=== PATIENT | female | born 2000 | race Caucasian/White ===

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

== ENCOUNTER 2020-01-17 20:11 | Emergency (ER) | payer OTHER ==
[2020-01-17 20:17] VITALS: RESP 18
[2020-01-17] MEDS ORDERED: IBUPROFEN 600 MG TAB PO STA (21:03)
[2020-01-17] MEDS ORDERED: PHENAZOPYRIDINE 200 MG TAB PO STA (21:03)
--- NOTE | 2020-01-17 21:04 | ED ---
Female Urogenital HPI - General Chief complaint: Urogenital Stated complaint: Vaginal pain Time Seen by Provider: 01/17/20 20:26 Source: patient Mode of arrival: ambulatory Limitations: no limitations - History of Present Illness Initial comments: 19-year-old female patient presents to the emergency department today for evaluation of urinary frequency, urgency, and dysuria. Patient states that she has been having discomfort to the suprapubic region for the last 4 or 5 days. States she started having burning with urination today. States that she also started her period today. Prior to onset of her menses she denies any abnormal vaginal discharge or odor. She denies fever, chills, nausea, or vomiting. Denies any flank pain. Denies chance of . Denies concern for sexually transmitted infections. Patient denies any recent rash, cough, shortness of breath, chest pain, diarrhea, constipation, back pain, numbness, tingling, dizziness, weakness, headache, visual changes, or any other complaints. Last Menstrual Period: 01/16/20 - Related Data Home Medications Medication Instructions Recorded Confirmed Dm/Acetaminophen/Doxylamine [Vicks 1 cap PO HS PRN 12/10/18 12/10/18 Nyquil Liquicaps] Ibuprofen [Motrin Ib] 400 mg PO Q6H PRN 12/10/18 12/10/18 Previous Rx's Medication Instructions Recorded Nitrofurantoin Monohyd/M-Cryst 100 mg PO Q12HR #14 cap 01/17/20 [Macrobid] Phenazopyridine [Pyridium] 200 mg PO TID #18 tablet 01/17/20 Allergies Allergy/AdvReac Type Severity Reaction Status Date / Time No Known Allergies Allergy Verified 07/13/19 09:31 Review of Systems ROS Statement: Those systems with pertinent positive or pertinent negative responses have been documented in the HPI. ROS Other: All systems not noted in ROS Statement are negative. Past Medical History Past Medical History: Asthma Additional Past Medical History / Comment(s): previously suicidal 2 yrs ago with cutting self, exercise induced asthma History of Any Multi-Drug Resistant Organisms: None Reported Past Surgical History: Orthopedic Surgery Past Psychological History: Anxiety, Bipolar, Depression Smoking Status: Current every day smoker Past Alcohol Use History: Occasional Past Drug Use History: Marijuana General Exam Limitations: no limitations General appearance: alert, in no apparent distress, other (This is a well- developed, well-nourished adult female patient in no acute distress. Vital signs upon presentation are temperature 99.1F, pulse 94, respirations 18, blood pressure 123/77, pulse ox 98% on room air.) Respiratory exam: Present: normal lung sounds bilaterally. Absent: respiratory distress, wheezes, rales, rhonchi, stridor Cardiovascular Exam: Present: regular rate, normal rhythm, normal heart sounds. Absent: systolic murmur, diastolic murmur, rubs, gallop, clicks GI/Abdominal exam: Present: soft, tenderness (Mild suprapubic), normal bowel sounds. Absent: distended, guarding, rebound, rigid Back exam: Present: normal inspection, CVA tenderness (L) (Mild left). Absent: CVA tenderness (R) Neurological exam: Present: alert, oriented X3, CN II-XII intact Psychiatric exam: Present: normal affect, normal mood Skin exam: Present: warm, dry, intact, normal color. Absent: rash Course Vital Signs 01/17/20 01/17/20 20:14 21:27 Temperature 99.1 F 98.8 F Pulse Rate 94 85 Respiratory 18 18 Rate Blood Pressure 123/77 118/84 O2 Sat by Pulse 98 99 Oximetry Medical Decision Making - Medical Decision Making 19-year-old female patient presents to the emergency department today for evaluation of dysuria, urinary urgency, urinary frequency, and suprapubic discomfort. Patient is on her period right now. Physical examination did reveal mild left CVA tenderness, suprapubic tenderness. Did do a vaginal exam which showed presence of vaginal bleeding, one clot in the canal. Cervix shows no erythema. Genital cultures were obtained and sent for sexual transmitted infection testing. Urinalysis did show 27 white blood cells, this was sent for culture. HCG was negative. Will start Macrobid for possible urinary tract infection. We did discuss that the genital cultures take 3 days to come back we will contact her if there is any abnormals. She is instructed to increase fluids and to rest. She is instructed to follow-up with her primary care physician for recheck in 1-2 days. Return parameters were discussed in detail. She verbalizes understanding and agrees with this plan. - Lab Data Lab Results 01/17/20 01/17/20 Range/Units 20:51 20:51 Urine Color Light Yellow Urine Appearance Cloudy H (Clear) Urine pH 7.0 (5.0-8.0) Ur Specific [place] 1.004 (1.001-1.035) Urine Protein Trace H (Negative) Urine Glucose (UA) Negative (Negative) Urine Ketones Negative (Negative) Urine Blood Large H (Negative) Urine Nitrite Negative (Negative) Urine Bilirubin Negative (Negative) Urine Urobilinogen <2.0 (<2.0) mg/dL Ur Leukocyte Esterase Moderate H (Negative) Urine RBC 7 H (0-5) /hpf Urine WBC 27 H (0-5) /hpf Ur Squamous Epith Cells 2 (0-4) /hpf Urine Bacteria Rare H (None) /hpf Urine HCG, Qual Not Detected (Not Detectd) Disposition Clinical Impression: Urinary tract infection Disposition: HOME SELF-CARE Condition: Good Instructions (If sedation given, give patient instructions): Urinary Tract Infection in Women (ED) Additional Instructions: Increase fluids. Complete antibiotics in full. Follow up with your primary care physician for recheck in 1-2 days. Return for any new, worsening, or concerning symptoms. Prescriptions: Nitrofurantoin Monohyd/M-Cryst [Macrobid] 100 mg PO Q12HR #14 cap Phenazopyridine [Pyridium] 200 mg PO TID #18 tablet Is patient prescribed a controlled substance at d/c from ED?: No Referrals: Cuba Beyer DO [Primary Care Provider] - 1-2 days Time of Disposition: 21:28
[2020-01-17 21:05] LABS: Appearance,Urine Cloudy (Clear); Bacteria,Urine Rare /hpf; Bilirubin,Urine Negative (Negative); Blood,Urine Large (Negative); Color,Urine Light Yellow; Glucose,Urine (UA) Negative (Negative); Ketones,Urine Negative (Negative); Leukocyte Esterase,Urine Moderate (Negative); Nitrite,Urine Negative (Negative); Protein,Urine Trace (Negative); RBC,Urine 7 /hpf (0-5); Specific Gravity,Urine 1.004 (1.001-1.035); Squamous Epithelial Cell,Urine 2 /hpf (0-4); Urobilinogen,Urine <2.0 mg/dL (<2.0); WBC,Urine 27 /hpf (0-5)
[2020-01-17] MEDS ORDERED: NITROFURANTOIN MONOHYD/M-CRYST 100 MG CAP PO STA (21:25)
[2020-01-17 21:29] VITALS: BP 118/84; PULSE 85; TEMP 98.8
== END 2020-01-17 21:40 | disposition home or self-care (01) ==
LOC: EC 20:11
DX: N39.0 Urinary tract infection, site not specified (principal); N93.9 Abnormal uterine and vaginal bleeding, unspecified; F17.200 Nicotine dependence, unspecified, uncomplicated
CPT/HCPCS: 81001; 81025; 87070; 87086; 87491; 87591; 87808; 99284

== ENCOUNTER 2020-01-30 15:26 | Inpatient (IN) | payer MEDICAID, OTHER ==
--- NOTE | 2020-01-30 17:14 | ED ---
General Adult HPI - General Chief complaint: Psychiatric Symptoms Stated complaint: mental health Time Seen by Provider: 01/30/20 16:20 Source: patient, family, RN notes reviewed, old records reviewed Mode of arrival: ambulatory Limitations: no limitations - History of Present Illness Initial comments: Patient is a 19-year-old female present same suicidal homicidal ideations. She reports she's been under immense stress that she is now homeless as her remains kicked her out. Patient reports that she has been very helpful friend to her roommates as they were going through drug withdrawals however Patient has now been abandoned by her friends. Patient states that she is also depressed that she is unemployed. She states that she is now living with her mother. Patient reports that she seen multiple psychiatrists in the past and counselors. She states that her recent medication change to Remeron has been causing her night terrors. Patient states that she plans to cut her wrist. She also has some hateful statements and is upset at her father. - Related Data Home Medications Medication Instructions Recorded Confirmed Dm/Acetaminophen/Doxylamine [Vicks 1 cap PO HS PRN 12/10/18 12/10/18 Nyquil Liquicaps] Ibuprofen [Motrin Ib] 400 mg PO Q6H PRN 12/10/18 12/10/18 Previous Rx's Medication Instructions Recorded Nitrofurantoin Monohyd/M-Cryst 100 mg PO Q12HR #14 cap 01/17/20 [Macrobid] Phenazopyridine [Pyridium] 200 mg PO TID #18 tablet 01/17/20 Allergies Allergy/AdvReac Type Severity Reaction Status Date / Time No Known Allergies Allergy Verified 01/30/20 15:42 Review of Systems ROS Statement: Those systems with pertinent positive or pertinent negative responses have been documented in the HPI. ROS Other: All systems not noted in ROS Statement are negative. Past Medical History Past Medical History: Asthma Additional Past Medical History / Comment(s): previously suicidal 2 yrs ago with cutting self, exercise induced asthma,multiple personality disorder. History of Any Multi-Drug Resistant Organisms: None Reported Past Surgical History: Orthopedic Surgery Past Psychological History: Anxiety, Bipolar, Depression Smoking Status: Current every day smoker Past Alcohol Use History: Occasional Past Drug Use History: Marijuana General Exam - General Exam Comments Initial Comments: 19 year old female, no distress. Limitations: no limitations General appearance: alert, in no apparent distress Head exam: Present: atraumatic, normocephalic, normal inspection Eye exam: Present: normal appearance, PERRL, EOMI. Absent: scleral icterus, conjunctival injection, periorbital swelling ENT exam: Present: normal exam, mucous membranes moist Neck exam: Present: normal inspection. Absent: tenderness, meningismus, lymphadenopathy Respiratory exam: Present: normal lung sounds bilaterally. Absent: respiratory distress, wheezes, rales, rhonchi, stridor Cardiovascular Exam: Present: regular rate, normal rhythm, normal heart sounds. Absent: systolic murmur, diastolic murmur, rubs, gallop, clicks GI/Abdominal exam: Present: soft, normal bowel sounds. Absent: distended, tenderness, guarding, rebound, rigid Extremities exam: Present: normal inspection, full ROM, normal capillary refill, other (Patient has healed linear lacerations over the right inner thigh.). Absent: tenderness, pedal edema, joint swelling, calf tenderness Back exam: Present: normal inspection Neurological exam: Present: alert, oriented X3, CN II-XII intact Psychiatric exam: Present: depressed, anxious. Absent: normal affect, normal mood Skin exam: Present: warm, dry, intact, normal color. Absent: rash Course Vital Signs 01/30/20 01/30/20 15:37 18:59 Temperature 97.8 F Pulse Rate 113 H 67 Respiratory 18 18 Rate Blood Pressure 114/82 116/67 O2 Sat by Pulse 98 Oximetry Medical Decision Making - Medical Decision Making Patient's medically clear for EPS violation with suicidal homicidal ideation. Patient agrees to sign in after being evaluated by EPS. - Lab Data Lab Results 01/30/20 Range/Units 18:45 Urine Opiates Screen Not Detected (NotDetected) Ur Oxycodone Screen Not Detected (NotDetected) Urine Methadone Screen Not Detected (NotDetected) Ur Propoxyphene Screen Not Detected (NotDetected) Ur Barbiturates Screen Not Detected (NotDetected) U Tricyclic Antidepress Not Detected (NotDetected) Ur Phencyclidine Scrn Not Detected (NotDetected) Ur Amphetamines Screen Not Detected (NotDetected) U Methamphetamines Scrn Not Detected (NotDetected) U Benzodiazepines Scrn Detected H (NotDetected) Urine Cocaine Screen Not Detected (NotDetected) U Marijuana (THC) Screen Detected H (NotDetected) Disposition Clinical Impression: Suicidal behavior Disposition: ADMITTED IP TO THIS HOSP Condition: Stable Is patient prescribed a controlled substance at d/c from ED?: No Referrals: Cuba Beyer DO [Primary Care Provider] - 1-2 days Time of Disposition: 20:22
[2020-01-30 19:29] LABS: Amphetamine Screen,Urine Not Detected (NotDetected); Barbiturate Screen,Urine Not Detected (NotDetected); Benzodiazepines Screen,Urine Detected (NotDetected); Cocaine Screen,Urine Not Detected (NotDetected); Methadone Screen, Urine Not Detected (NotDetected); Opiate Screen,Urine Not Detected (NotDetected); Oxycodone Screen, Urine Not Detected (NotDetected); Phencyclidine Screen,Urine Not Detected (NotDetected); Tricyclic Antidepressant,Urine Not Detected (NotDetected); Urn Cannabinoid Scrn Detected (NotDetected)
[2020-01-30] MEDS ORDERED: NICOTINE 14MG/24HR PATCH TRANSDERM STA (19:44)
[2020-01-30] MEDS ORDERED: MAGNESIUM HYDROXIDE 2,400 MG/10 ML CUP PO PRN (21:46)
[2020-01-30] MEDS ORDERED: ACETAMINOPHEN TAB 325 MG TAB PO PRN (21:46)
[2020-01-30] MEDS ORDERED: LORazepam 2 MG/ML INJ IM PRN (21:49)
[2020-01-31 08:10] LABS: Basophils % (A) 1 %; Eosinophils # (A) 0.2 k/uL (0-0.7); Eosinophils % (A) 3 %; HCT 42.3 % (34.0-46.0); HGB 13.7 gm/dL (11.4-16.0); Lymphocytes # (A) 2.9 k/uL (1.0-4.8); Lymphocytes % (A) 42 %; MCH 27.1 pg (25.0-35.0); MCHC 32.5 g/dL (31.0-37.0); MCV 83.5 fL (80.0-100.0); Mean Platelet Volume 7.9; Monocytes # (A) 0.5 k/uL (0-1.0); Monocytes % (A) 7 %; Neutrophils # (A) 3.1 k/uL (1.3-7.7); Neutrophils % (A) 45 %; Platelet Count 231 k/uL (150-450); RBC 5.06 m/uL (3.80-5.40); RDW 13.4 % (11.5-15.5); WBC 6.9 k/uL (4.0-11.0)
[2020-01-31 08:23] LABS: ALT 14 U/L (4-34); AST 23 U/L (14-36); African American GFR (CKD) >90 (>60 ml/min/1.73 sqM); Albumin 4.2 g/dL (3.5-5.0); Alkaline Phosphatase 72 U/L (38-126); Anion Gap 8 mmol/L; Blood Urea Nitrogen 10 mg/dL (7-17); Calcium 9.7 mg/dL (8.4-10.2); Carbon Dioxide 25 mmol/L (22-30); Chloride 103 mmol/L (98-107); Cholesterol 203 mg/dL (<200); Glucose 91 mg/dL (74-99); HDL Cholesterol 53 mg/dL (40-60); LDL Cholesterol,Calculated 129 mg/dL (0-99); Non-African American GFR(CKD) >90 (>60 ml/min/1.73 sqM); Potassium 4.3 mmol/L (3.5-5.1); Sodium 136 mmol/L (137-145); Total Bilirubin 0.4 mg/dL (0.2-1.3); Triglycerides 104 mg/dL (<150)
[2020-01-31] MEDS: NICOTINE 14MG/24HR PATCH TRANSDERM SCH (09:33)
[2020-01-31] MEDS: LORazepam 1 MG TAB PO PRN ×2 (09:33→16:51)
[2020-01-31 14:04] LABS: Hemoglobin A1C 5.7 % (4.0-6.0)
--- NOTE | 2020-01-31 16:28 | P.HP ---
Psychiatric H&P - . H&P Date: 01/31/20 History & Physical: Allergies Allergy/AdvReac Type Severity Reaction Status Date / Time No Known Allergies Allergy Verified 01/30/20 15:42 Vital Signs Temp 99.5 F 01/31/20 13:24 Pulse 83 01/31/20 01:35 Resp 14 01/31/20 01:35 BP 124/61 01/31/20 01:35 Pulse Ox 98 01/31/20 01:35 Intake & Output 01/30/20 01/31/20 01/31/20 18:59 06:59 18:59 Weight 49.442 kg 47.854 kg 47.854 kg Laboratory Last Values WBC 6.9 k/uL (4.0-11.0) 01/31/20 07:12 RBC 5.06 m/uL (3.80-5.40) 01/31/20 07:12 Hgb 13.7 gm/dL (11.4-16.0) 01/31/20 07:12 Hct 42.3 % (34.0-46.0) 01/31/20 07:12 MCV 83.5 fL (80.0-100.0) 01/31/20 07:12 MCH 27.1 pg (25.0-35.0) 01/31/20 07:12 MCHC 32.5 g/dL (31.0-37.0) 01/31/20 07:12 RDW 13.4 % (11.5-15.5) 01/31/20 07:12 Plt Count 231 k/uL (150-450) 01/31/20 07:12 Neutrophils % 45 % 01/31/20 07:12 Lymphocytes % 42 % 01/31/20 07:12 Monocytes % 7 % 01/31/20 07:12 Eosinophils % 3 % 01/31/20 07:12 Basophils % 1 % 01/31/20 07:12 Neutrophils # 3.1 k/uL (1.3-7.7) 01/31/20 07:12 Lymphocytes # 2.9 k/uL (1.0-4.8) 01/31/20 07:12 Monocytes # 0.5 k/uL (0-1.0) 01/31/20 07:12 Eosinophils # 0.2 k/uL (0-0.7) 01/31/20 07:12 Basophils # 0.0 k/uL (0-0.2) 01/31/20 07:12 Sodium 136 mmol/L (137-145) L 01/31/20 07:12 Potassium 4.3 mmol/L (3.5-5.1) 01/31/20 07:12 Chloride 103 mmol/L (98-107) 01/31/20 07:12 Carbon Dioxide 25 mmol/L (22-30) 01/31/20 07:12 Anion Gap 8 mmol/L 01/31/20 07:12 BUN 10 mg/dL (7-17) 01/31/20 07:12 Creatinine 0.59 mg/dL (0.52-1.04) 01/31/20 07:12 Est GFR (CKD-EPI)AfAm >90 (>60 ml/min/1.73 sqM) 01/31/20 07:12 Est GFR (CKD-EPI)NonAf >90 (>60 ml/min/1.73 sqM) 01/31/20 07:12 Glucose 91 mg/dL (74-99) 01/31/20 07:[address] Glu mg/dL 117 01/31/20 07:12 Hemoglobin A1c 5.7 % (4.0-6.0) 01/31/20 07:12 Calcium 9.7 mg/dL (8.4-10.2) 01/31/20 07:12 Total Bilirubin 0.4 mg/dL (0.2-1.3) 01/31/20 07:12 AST 23 U/L (14-36) 01/31/20 07:12 ALT 14 U/L (4-34) 01/31/20 07:12 Alkaline Phosphatase 72 U/L (38-126) 01/31/20 07:12 Total Protein 7.0 g/dL (6.3-8.2) 01/31/20 07:12 Albumin 4.2 g/dL (3.5-5.0) 01/31/20 07:12 Triglycerides 104 mg/dL (<150) 01/31/20 07:12 Cholesterol 203 mg/dL (<200) H 01/31/20 07:12 LDL Cholesterol, Calc 129 mg/dL (0-99) H 01/31/20 07:12 HDL Cholesterol 53 mg/dL (40-60) 01/31/20 07:12 TSH 2.500 mIU/L (0.465-4.680) 01/31/20 07:12 Urine Opiates Screen Not Detected (NotDetected) 01/30/20 18:45 Ur Oxycodone Screen Not Detected (NotDetected) 01/30/20 18:45 Urine Methadone Screen Not Detected (NotDetected) 01/30/20 18:45 Ur Propoxyphene Screen Not Detected (NotDetected) 01/30/20 18:45 Ur Barbiturates Screen Not Detected (NotDetected) 01/30/20 18:45 U Tricyclic Antidepress Not Detected (NotDetected) 01/30/20 18:45 Ur Phencyclidine Scrn Not Detected (NotDetected) 01/30/20 18:45 Ur Amphetamines Screen Not Detected (NotDetected) 01/30/20 18:45 U Methamphetamines Scrn Not Detected (NotDetected) 01/30/20 18:45 U Benzodiazepines Scrn Detected (NotDetected) H 01/30/20 18:45 Urine Cocaine Screen Not Detected (NotDetected) 01/30/20 18:45 U Marijuana (THC) Screen Detected (NotDetected) H 01/30/20 18:45 01/31/20 16:20 IDENTIFYING DATA: 19-year-old single female patient HPI: Patient admitted to the inpatient psychiatric unit [facility] on a voluntary basis. Patient has been dealing with the recent depression. She states that she has a history of a lot of trauma. She relays that she was recently kicked out of her apartment. She relays that she wasn't following the rules. She talks about her recent friend of hers that was dealing with methadone addiction and was told by her friend that she didn't want anything to do with her. Says she came into the hospital because she was having thoughts of self-harm and thought there is no other option for her. Says she doesn't want to kill herself she wants to get help. She admits to severe anxiety and relays that that's a crippling thing for her. PAST PSYCHIATRIC HISTORY: Patient was on Remeron recently which she started having vivid dreams with so she stopped taking that this is her sixth inpatient psychiatric admission. Her first admission was as a 12-year-old. She denies any history of suicide attempts. She is been on Klonopin the past which helped her she was not Prozac which made her stomach hurt bad. she's never been on Cymbalta before. she took Seroquel which made her feel more paranoid. Vistaril with a little benefit with anxiety. she states Abilify didn't work for her and she felt numb. Lamictal made her go into psychosis. Depakote made her gain weight. She has never been on Geodon. She has had history of diagnosis of bipolar disorder and borderline personality disorder. She does give a history of having manic manic episodes. PMH: Scoliosis, pain in her joints. ALLERGIES: No known ALLERGIES MEDICATIONS: Tylenol when necessary, Maalox when necessary, Ativan when necessary, milk of magnesia when necessary, Habitrol patch CHEMICAL DEPENDENCY HISTORY: That she smokes marijuana daily. Relays that marijuana has helped her more than any drug. Occasional alcohol use. FAMILY PSYCHIATRIC HISTORY: Mom with bulimia symptoms, depression and anxiety. Dad with possibly bipolar disorder. FAMILY CHEMICAL DEPENDENCY HISTORY: Not known at this time. SOCIAL HISTORY: Patient states she was living with her best friend's mom but was recently kicked out. He is currently homeless and intent. She says her mom is also homeless. He is not currently working, she went to school through the 12th grade and had 4 credits left. Says she kind of has a boyfriend right now. She does not have any children. MENTAL STATUS EXAM: She is alert and cooperative with the interview. Her speech is fluent, not rapid or pressured. Thought processes organized. Her mood she describes as "very anxious, A little bit depressed." Her hair is an [place]/red color. She does not show any evidence of active psychosis. She does not display any agitation. She denies any current thoughts of harm to self or others. Cognitively she appears very grossly intact. I do not note any significant disorientation or memory disturbance. Her insight is adequate, judgment shows evidence of recent impairment. STRENGTHS/WEAKNESSES: Strengthssome support; weaknessescoping skills INTELLECTUAL FUNCTIONING: Average IMPRESSIONS: Bipolar disorder, depressed; unspecified anxiety disorder; likely cannabis use disorder PLAN: Patient admitted to the inpatient psychiatric unit [facility] on a voluntary basis. She will be placed on SP 15 minute precautions. She will be participating in group and activity therapies. Baseline laboratory workup done the patient and medical consultation will be ordered. We will initiate Cymbalta 30 mg daily to help with depression and anxiety component and Geodon 20 mg twice a day to help in terms of mood stability. We'll look into any support systems. Estimated length of stay is 3-5 days. Prognosis is guarded.
[2020-01-31] MEDS: DULoxetine HCL 30 MG CAPSULE.DR PO SCH (16:51)
[2020-01-31] MEDS: MAG HYDROX/AL HYDROX/SIMETH 30 ML CUP PO PRN (18:52)
[2020-01-31] MEDS: ZIPRASIDONE 20 MG CAP PO SCH (20:54)
--- NOTE | 2020-01-31 22:01 | P.CONS ---
History of Present Illness - Reason for Consult Consult date: 01/31/20 Medical management Requesting physician: Gil Pemberton - Chief Complaint Depressed - History of Present Illness Consultation: This is a 19-year-old patient follows a Dr. Beyer. Patient has gone through a lot of social issues. She has no contact with her father for last 3 years and doesn't want to see him right now and vice versa. She is in high school but not completed all her credits. She and her mother currently homeless. She also had a nurse who was shows kidney 82 but then she was turned out by her. Patient does vaping also does marijuana. Patient rather depressed. Does not want to, so but has been getting different parts. Very anxious. Review of systems: GEN.: Tired EYES: None HEENT: None NECK: None RESPIRATORY: None CARDIOVASCULAR: None GASTROINTESTINAL: None GENITOURINARY: None MUSCULOSKELETAL: None LYMPHATICS: None HEMATOLOGICAL: None PSYCHIATRY: Anxious depressed NEUROLOGICAL: None Social history: Patient is in 12th grade but not finished her credits. Does vaping. Also does marijuana but 60 once a day. Alcohol occasionally. Most recently living with her friend's mother. Currently homeless Family history: Reviewed, noncontributory to presentation Physical examination: VITAL SIGNS: 98.4, 83, 14, 124/61, 98% room air GENERAL: BMI 16.5, sitting up, anxious. EYES: Pupils equal. Conjunctiva normal. HEENT: External appearance of nose and ears normal, oral cavity grossly normal multicolored hair. NECK: JVD not raised; masses not palpable. HEART: First and second heart sounds are normal; no edema. LUNGS: Respiratory rate normal; clear to auscultation. ABDOMEN: Soft, scaphoid nontender, liver spleen not palpable, no masses palpable. PSYCH: [Alert and oriented x3; mood and affect anxious l. NEUROLOGICAL: Cranial nerves grossly intact; no facial asymmetry, power and sensation grossly intact. LYMPHATICS: No lymph nodes palpable in the axilla and neck INVESTIGATIONS, reviewed in the clinical context: White count 6.9 hemoglobin 13.7 platelets 231 potassium 4.3 creatinine 0.59 Total cholesterol 203 LDL 129 TSH 2.5 Urine drug screen positive for benzodiazepine and marijuana Assessment: -Recreational marijuana use -Patient does smoke- less vaping -Moderate protein calorie malnutrition with a BMI of 16.5 from decreased oral intake -Bipolar depressed, unspecified anxiety disorder as per psychiatry. Plan: Patient was also reported different positive aspects about approach to light. Advised against smoking vaping and also marijuana. We'll start the patient on ensure supplement and also after dietitian see the patient. Patient should follow up with her family doctor upon discharge. Thank you Dr Sheehan Past Medical History Past Medical History: Asthma Additional Past Medical History / Comment(s): previously suicidal 2 yrs ago with cutting self, exercise induced asthma,multiple personality disorder. History of Any Multi-Drug Resistant Organisms: None Reported Past Surgical History: Orthopedic Surgery Past Psychological History: Anxiety, Bipolar, Depression Smoking Status: Current every day smoker Past Alcohol Use History: Occasional Past Drug Use History: Marijuana Medications and Allergies Home Medications Medication Instructions Recorded Confirmed Type Dm/Acetaminophen/Doxylamine [Vicks 1 cap PO HS PRN 12/10/18 12/10/18 History Nyquil Liquicaps] Ibuprofen [Motrin Ib] 400 mg PO Q6H PRN 12/10/18 12/10/18 History Nitrofurantoin Monohyd/M-Cryst 100 mg PO Q12HR #14 cap 01/17/20 Rx [Macrobid] Phenazopyridine [Pyridium] 200 mg PO TID #18 tablet 01/17/20 Rx Allergies Allergy/AdvReac Type Severity Reaction Status Date / Time No Known Allergies Allergy Verified 01/30/20 15:42 Physical Exam Vitals: Vital Signs Temp Pulse Pulse Resp BP BP Pulse Ox 01/31/20 01:35 98.4 F 83 14 124/61 98 01/31/20 00:32 97.9 F 76 16 127/83 100 01/30/20 18:59 67 18 116/67 01/30/20 15:37 97.8 F 113 H 18 114/82 98 Intake and Output 01/30/20 01/31/20 01/31/20 22:59 06:59 14:59 Other: Weight 49.442 kg 47.854 kg Results CBC & Chem 7: 01/31/20 07:12 01/31/20 07:12 Labs: Abnormal Lab Results - Last 24 Hours (Table) 01/30/20 01/31/20 Range/Units 18:45 07:12 Sodium 136 L (137-145) mmol/L Cholesterol 203 H (<200) mg/dL LDL Cholesterol, Calc 129 H (0-99) mg/dL U Benzodiazepines Scrn Detected H (NotDetected) U Marijuana (THC) Screen Detected H (NotDetected)
[2020-02-01] MEDS: NICOTINE 14MG/24HR PATCH TRANSDERM SCH (08:53)
[2020-02-01] MEDS: ZIPRASIDONE 20 MG CAP PO SCH ×2 (08:53→21:35)
[2020-02-01] MEDS: DULoxetine HCL 30 MG CAPSULE.DR PO SCH (08:53)
[2020-02-01] MEDS: LORazepam 1 MG TAB PO PRN (10:57)
--- NOTE | 2020-02-01 19:17 | P.PN ---
Progress Note - Text Progress Note Date: 02/01/20 Interval history: Patient does describe some increased tiredness when she woke up this morning, may be related to the previous night's Geodon. She does feel less tired now. We did discuss gentle side effect, she is agreeable to see how she feels with taking the Geodon for 1 more day and then reassessing. Mental status exam: She is alert and cooperative with the interview. Her mood overall seems to be better. She verbalizes that she wanted to fight one of her friends before but denies any active thoughts of harm to others and verbalizes that she would only get physical in self defense. She does not verbalize any thoughts of harm to self. No active evidence of psychosis. Plan: Patient will be maintained on current psychotropic medication regimen we will monitor closely regarding side effects. She will continue to monitor her ongoing status her response to the medication regimen.
[2020-02-02] MEDS: NICOTINE 14MG/24HR PATCH TRANSDERM SCH (08:26)
[2020-02-02] MEDS: ZIPRASIDONE 20 MG CAP PO SCH ×2 (08:26→20:19)
[2020-02-02] MEDS: DULoxetine HCL 30 MG CAPSULE.DR PO SCH (08:26)
[2020-02-02] MEDS: LORazepam 1 MG TAB PO PRN ×2 (10:22→20:19)
[2020-02-02 10:30] VITALS: RESP 16
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
[2020-02-03] MEDS: LORazepam 1 MG TAB PO PRN (08:30)
[2020-02-03] MEDS: ZIPRASIDONE 20 MG CAP PO SCH ×2 (08:31→20:01)
[2020-02-03] MEDS: DULoxetine HCL 30 MG CAPSULE.DR PO SCH (08:31)
[2020-02-03] MEDS: NICOTINE 14MG/24HR PATCH TRANSDERM SCH ×2 (08:41→13:49)
[2020-02-03] MEDS: MAG HYDROX/AL HYDROX/SIMETH 30 ML CUP PO PRN (09:06)
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
[2020-02-04 06:48] VITALS: BP 104/51; PULSE 67
[2020-02-04] MEDS: ZIPRASIDONE 20 MG CAP PO SCH (08:16)
[2020-02-04] MEDS: NICOTINE 14MG/24HR PATCH TRANSDERM SCH (08:16)
[2020-02-04] MEDS: MAG HYDROX/AL HYDROX/SIMETH 30 ML CUP PO PRN (08:18)
[2020-02-04] MEDS ORDERED: DULoxetine HCL 60 MG CAPSULE.DR PO SCH (09:00)
--- NOTE | 2020-02-04 10:53 | P.DS ---
Providers Date of admission: 01/30/20 21:33 Expected date of discharge: 02/04/20 Attending physician: Emeka Lowery MD Consults: 01/31/20 09:18 Consult Physician Routine Consulting Provider: Tung Carrasco Consult Reason/Comments: H&P Do you want consulting provider notified?: Yes Primary care physician: Cuba Beyer - Discharge Diagnosis(es) (1) Depression Current Visit: Yes Status: Acute (2) Cannabis use disorder, moderate, dependence Current Visit: Yes Status: Acute Priority: Medium Hospital Course: Brief summary of admission note: This patient is a 19-year-old single female who was admitted to the mental health unit through the emergency room for acute symptoms of depression. She reported that she was recently kicked out of her apartment she was homeless area she presented to the hospital with thoughts of self-harm. She described severe symptoms of anxiety. She was initially evaluated by Dr. Sheehan on 01/31/2020 please refer to that dictation for full detail. Summary of hospital course: The patient was admitted to the mental health unit voluntarily. She was initially evaluated by Dr. Sheehan and was also seen by Dr. Lowery in coverage during my absence. I assumed care of the patient starting yesterday. The patient had been started on Cymbalta 30 mg daily and Geodon 20 mg twice daily. I did titrate the Cymbalta 60 mg daily. The patient was seen by internal medicine for routine history and physical exam. nursery worker met with the patient to complete a psychosocial assessment and for discharge planning purposes. The patient reported a progressive improvement of symptoms while here. Social work was able to contact the patient's mother for collateral information. The patient will be residing with her mother again. The patient is agreeable to continuing with outpatient mental health follow-up through [facility]. She was given resource information in terms of subsidized housing. Mental status exam: The patient is a thin female appearing her stated age. Her hair is dyed red eye contact is appropriate speech is fluent spontaneous nonpressured. Affect is bright and appears euthymic today she is able to demonstrate appropriate range of affect. She reports that her mood is improved she is reporting no feelings of depression or anxiety she is reporting no hopelessness thinking she is reporting no suicidal ideation intent or plan. She reports no other thoughts of self-harm such as cutting. No homicidal ideation reported. She denies having any auditory or visual hallucinations or any specific delusions. There is no observed evidence of psychosis. She demonstrates no tangential thinking loose associations or flight of ideas. She does not appear hypomanic or manic. Insight and judgment have sufficiently improved. She demonstrates no verbal or physical aggressiveness no involuntary repetitive movements. She remains oriented to person place and date. Impressions 1. Depression unspecified rule out major depressive disorder recurrent severe, rule out bipolar depression, cannabis use disorder moderate, rule out borderline traits Plan: The patient will be discharged mental health unit today she will reside with her mother. She will [facility] up with [facility] upon discharge. Continue on Cymbalta 60 mg daily and Geodon 20 mg twice daily with food. She is instructed to abstain from any use of alcohol and marijuana or illicit drugs. She does not require inpatient chemical dependency treatment or any other medication prescribed at this time for substance use. At this time there is no imminent safety risks she is appropriate for transition outpatient care. She is instructed to return to the hospital with any acute safety concerns and she is agreeable. Patient Condition at Discharge: Stable Plan - Discharge Summary New Discharge Prescriptions: New DULoxetine HCL [Cymbalta] 60 mg PO DAILY #30 capsule. Ziprasidone [Geodon] 20 mg PO BID #60 cap Nicotine 14Mg/24Hr Patch [Habitrol] 1 patch TRANSDERM DAILY #14 patch Discontinued Ibuprofen [Motrin Ib] 400 mg PO Q6H PRN PRN Reason: Pain Dm/Acetaminophen/Doxylamine [Vicks Nyquil Liquicaps] 1 cap PO HS PRN PRN Reason: Cold Symptoms Nitrofurantoin Monohyd/M-Cryst [Macrobid] 100 mg PO Q12HR #14 cap Phenazopyridine [Pyridium] 200 mg PO TID #18 tablet Discharge Medication List DULoxetine HCL [Cymbalta] 60 mg PO DAILY #30 capsule. 02/04/20 [Rx] Nicotine 14Mg/24Hr Patch [Habitrol] 1 patch TRANSDERM DAILY #14 patch 02/04/20 [Rx] Ziprasidone [Geodon] 20 mg PO BID #60 cap 02/04/20 [Rx] Follow up Appointment(s)/Referral(s): Cuba Beyer DO [Primary Care Provider] - 1-2 days Activity/Diet/Wound Care/Special Instructions: Activity and diet as tolerated. Avoid the use of street drugs and alcohol. Take all medications as prescribed. When you are in need of refills on your medications please contact your medical provider and/or outpatient psychiatrist to have this done. Please go to scheduled outpatient appointment for aftercare treatment. If symptoms return or become worse, call the crisis line at and/or go to the nearest emergency room for evaluation.
[2020-02-04 11:50] VITALS: BMI 16.4
[2020-02-04 12:57] VITALS: TEMP 97.2
== END 2020-02-04 13:45 | disposition home or self-care (01) | DRG 885 ==
LOC: EC 15:26 → 3MHU 21:33
PROVIDERS: ADMIT Psychiatry & Neurology Psychiatry; ATTEND Psychiatry & Neurology Psychiatry
DX: F31.30 Bipolar disorder, current episode depressed, mild or moderate severity, unspecified (principal); E44.0 Moderate protein-calorie malnutrition; R45.851 Suicidal ideations; Z68.1 Body mass index [BMI] 19.9 or less, adult; F12.20 Cannabis dependence, uncomplicated; F44.81 Dissociative identity disorder; R45.850 Homicidal ideations; F43.10 Post-traumatic stress disorder, unspecified; J45.990 Exercise induced bronchospasm; Z91.5 Personal history of self-harm; F60.3 Borderline personality disorder; M41.9 Scoliosis, unspecified; F17.290 Nicotine dependence, other tobacco product, uncomplicated; Z71.6 Tobacco abuse counseling; Z79.899 Other long term (current) drug therapy; Z59.0 Homelessness; Z56.0 Unemployment, unspecified; Z71.3 Dietary counseling and surveillance
CPT/HCPCS: 80053; 80061; 80306; 82075; 83036; 84443; 85025; 99285

== ENCOUNTER 2020-03-03 20:48 | Inpatient (IN) | payer MEDICAID, OTHER ==
--- NOTE | 2020-03-03 21:19 | ED ---
General Adult HPI <Alfie Alamo - Last Filed: 03/03/20 22:56> - General Source: patient, EMS Mode of arrival: EMS Limitations: no limitations <Estela Woodward - Last Filed: 03/03/20 23:12> - General Chief complaint: Psychiatric Symptoms Stated complaint: mental health Time Seen by Provider: 03/03/20 20:51 - History of Present Illness Initial comments: Patient is a 19-year-old female presenting to the emergency department for a psychiatric evaluation. Patient states she has been feeling more and more depressed and she just wants to feel better. Patient states she was fighting with her mother today and put 5 tablets of Klonopin into her mouth however her mother made her spit them out so she did. She did not swallow any of them. She states she "is sick of her mother yelling at her." She states she does have suicidal thoughts and her plan is to just "disappear." She denies any homicidal thoughts. She states she has not been sleeping very well and only getting a few hours here and there. She states she did not drink any alcohol today, she smokes marijuana occasionally, does vape as well, no other drug use. She denies being at this time. She denies any recent fever, cough. She has no further complaints at this time. Upon arrival to the ER, her vitals are stable. (Estela Woodward) - Related Data Previous Rx's Medication Instructions Recorded DULoxetine HCL [Cymbalta] 60 mg PO DAILY #30 capsule. 02/04/20 Ziprasidone [Geodon] 20 mg PO BID #60 cap 02/04/20 Allergies Allergy/AdvReac Type Severity Reaction Status Date / Time No Known Allergies Allergy Verified 03/03/20 21:13 Review of Systems ROS Other: All systems not noted in ROS Statement are negative. <Alfie Alamo - Last Filed: 03/03/20 22:56> ROS Other: All systems not noted in ROS Statement are negative. <Estela Woodward - Last Filed: 03/03/20 23:12> ROS Statement: Those systems with pertinent positive or pertinent negative responses have been documented in the HPI. Past Medical History Past Medical History: Asthma Additional Past Medical History / Comment(s): previously suicidal 2 yrs ago with cutting self, exercise induced asthma,multiple personality disorder. History of Any Multi-Drug Resistant Organisms: None Reported Past Surgical History: Orthopedic Surgery Past Psychological History: Anxiety, Bipolar, Depression Smoking Status: Current every day smoker Past Alcohol Use History: Occasional Past Drug Use History: Marijuana <Estela Woodward - Last Filed: 03/03/20 23:12> General Exam Limitations: no limitations <Estela Woodward - Last Filed: 03/03/20 23:12> - General Exam Comments Initial Comments: GENERAL: Patient appears fatigued, depressed and in no acute distress. HEAD: Atraumatic, normocephalic. EYES: Pupils equal round and reactive to light, extraocular movements intact, sclera anicteric, conjunctiva are normal. ENT: TMs normal, nares patent, oropharynx clear without exudates. Moist mucous membranes. NECK: Normal range of motion, supple without lymphadenopathy or JVD. LUNGS: Breath sounds clear to auscultation bilaterally and equal. No wheezes rales or rhonchi. HEART: Regular rate and rhythm without murmurs, rubs or gallops. ABDOMEN: Soft, nontender, normoactive bowel sounds. No guarding, no rebound. No masses appreciated. : Deferred EXTREMITIES: Normal range of motion, no pitting or edema. No clubbing or cyanosis. NEUROLOGICAL: Cranial nerves II through XII grossly intact. Normal speech, normal gait. PSYCH: Depressed mood. SKIN: Warm, Dry, normal turgor, no rashes or lesions noted. (Estela Woodward) Course <Alfie Alamo - Last Filed: 03/03/20 22:56> Vital Signs 03/03/20 03/03/20 20:50 22:48 Temperature 98.1 F 98.3 F Pulse Rate 92 101 H Respiratory 18 18 Rate Blood Pressure 123/88 124/67 O2 Sat by Pulse 98 98 Oximetry - Reevaluation(s) Reevaluation #1: 03/03/20 22:56 PA supervision: I did personally evaluate this case patient did present with complaints of symptoms consistent with depression and suicidal ideation. Patient was evaluated by the EPS service and will be admitted for inpatient care. (Alfie Alamo) Medical Decision Making <Estela Woodward - Last Filed: 03/03/20 23:12> - Medical Decision Making Patient is a 19-year-old female here for psychiatric evaluation. She does admit to having suicidal thoughts and her plan is to "disappear." She denies homicidal thoughts. Patient was evaluated by EPS. She will be admitted inpatient. Patient is agreement with this plan of care. (Estela Woodward) - Lab Data Lab Results 03/03/20 03/03/20 03/03/20 Range/Units 21:15 21:15 21:15 Urine Color Yellow Urine Appearance Turbid H (Clear) Urine pH 6.0 (5.0-8.0) Ur Specific [place] 1.030 (1.001-1.035) Urine Protein 1+ H (Negative) Urine Glucose (UA) Negative (Negative) Urine Ketones 1+ H (Negative) Urine Blood Negative (Negative) Urine Nitrite Negative (Negative) Urine Bilirubin Negative (Negative) Urine Urobilinogen 2.0 (<2.0) mg/dL Ur Leukocyte Esterase Trace H (Negative) Urine RBC <1 (0-5) /hpf Urine WBC 1 (0-5) /hpf Ur Squamous Epith Cells 1 (0-4) /hpf Hyaline Casts 1 (0-2) /lpf Urine Mucus Rare H (None) /hpf Urine HCG, Qual Not Detected (Not Detectd) Urine Opiates Screen Not Detected (NotDetected) Ur Oxycodone Screen Not Detected (NotDetected) Urine Methadone Screen Not Detected (NotDetected) Ur Propoxyphene Screen Not Detected (NotDetected) Ur Barbiturates Screen Not Detected (NotDetected) U Tricyclic Antidepress Not Detected (NotDetected) Ur Phencyclidine Scrn Not Detected (NotDetected) Ur Amphetamines Screen Not Detected (NotDetected) U Methamphetamines Scrn Not Detected (NotDetected) U Benzodiazepines Scrn Detected H (NotDetected) Urine Cocaine Screen Not Detected (NotDetected) U Marijuana (THC) Screen Detected H (NotDetected) Disposition <Alfie Alamo - Last Filed: 03/03/20 22:56> Decision Date: 03/03/20 Decision Time: 23:12 <Estela Woodward - Last Filed: 03/03/20 23:12> Clinical Impression: Suicidal ideation Disposition: TRANSFER TO PSYCH HOSP/UNIT Condition: Stable
[2020-03-03 21:41] LABS: Amphetamine Screen,Urine Not Detected (NotDetected); Barbiturate Screen,Urine Not Detected (NotDetected); Benzodiazepines Screen,Urine Detected (NotDetected); Cocaine Screen,Urine Not Detected (NotDetected); Methadone Screen, Urine Not Detected (NotDetected); Opiate Screen,Urine Not Detected (NotDetected); Oxycodone Screen, Urine Not Detected (NotDetected); Phencyclidine Screen,Urine Not Detected (NotDetected); Tricyclic Antidepressant,Urine Not Detected (NotDetected); Urn Cannabinoid Scrn Detected (NotDetected)
[2020-03-03] MEDS ORDERED: LORazepam 1 MG TAB PO STA (22:30)
[2020-03-03] MEDS ORDERED: MAGNESIUM HYDROXIDE 2,400 MG/10 ML CUP PO PRN ×2 (22:56→23:34)
[2020-03-03] MEDS ORDERED: ACETAMINOPHEN TAB 325 MG TAB PO PRN ×2 (22:56→23:34)
[2020-03-03] MEDS ORDERED: ZIPRASIDONE 20 MG VIAL IM PRN ×2 (22:56→23:34)
[2020-03-03] MEDS ORDERED: LORazepam 1 MG TAB PO PRN (22:56)
[2020-03-03] MEDS ORDERED: MAG HYDROX/AL HYDROX/SIMETH 30 ML CUP PO PRN ×2 (22:56→23:34)
[2020-03-03 23:11] LABS: Appearance,Urine Turbid (Clear); Bilirubin,Urine Negative (Negative); Blood,Urine Negative (Negative); Color,Urine Yellow; Glucose,Urine (UA) Negative (Negative); Hyaline Casts,Urine 1 /lpf (0-2); Ketones,Urine 1+ (Negative); Leukocyte Esterase,Urine Trace (Negative); Mucus,Urine Rare /hpf; Nitrite,Urine Negative (Negative); Protein,Urine 1+ (Negative); RBC,Urine <1 /hpf (0-5); Squamous Epithelial Cell,Urine 1 /hpf (0-4); WBC,Urine 1 /hpf (0-5)
[2020-03-04] MEDS ORDERED: NICOTINE 14MG/24HR PATCH TRANSDERM SCH (09:00)
[2020-03-04] MEDS: ZIPRASIDONE 20 MG CAP PO SCH ×2 (09:18→20:50)
[2020-03-04] MEDS: LORazepam 1 MG TAB PO PRN ×2 (09:18→20:51)
[2020-03-04] MEDS: NICOTINE 14MG/24HR PATCH TRANSDERM SCH (09:18)
[2020-03-04] MEDS: DULoxetine HCL 60 MG CAPSULE.DR PO SCH (09:18)
[2020-03-04 09:20] LABS: Basophils # (A) 0.1 k/uL (0-0.2); Basophils % (A) 1 %; Eosinophils # (A) 0.2 k/uL (0-0.7); Eosinophils % (A) 2 %; HCT 46.2 % (34.0-46.0); Lymphocytes # (A) 3.7 k/uL (1.0-4.8); Lymphocytes % (A) 39 %; MCH 27.2 pg (25.0-35.0); MCHC 32.4 g/dL (31.0-37.0); MCV 84.2 fL (80.0-100.0); Mean Platelet Volume 7.6; Monocytes # (A) 0.7 k/uL (0-1.0); Monocytes % (A) 7 %; Neutrophils # (A) 4.7 k/uL (1.3-7.7); Neutrophils % (A) 49 %; Platelet Count 287 k/uL (150-450); RBC 5.49 m/uL (3.80-5.40); RDW 14.2 % (11.5-15.5); WBC 9.5 k/uL (4.0-11.0)
[2020-03-04 09:40] LABS: ALT 14 U/L (4-34); AST 23 U/L (14-36); African American GFR (CKD) >90 (>60 ml/min/1.73 sqM); Albumin 4.7 g/dL (3.5-5.0); Alkaline Phosphatase 83 U/L (38-126); Anion Gap 10 mmol/L; Blood Urea Nitrogen 13 mg/dL (7-17); Calcium 10.3 mg/dL (8.4-10.2); Carbon Dioxide 24 mmol/L (22-30); Chloride 103 mmol/L (98-107); Cholesterol 195 mg/dL (<200); Glucose 106 mg/dL (74-99); HDL Cholesterol 53 mg/dL (40-60); LDL Cholesterol,Calculated 124 mg/dL (0-99); Non-African American GFR(CKD) >90 (>60 ml/min/1.73 sqM); Potassium 4.8 mmol/L (3.5-5.1); Sodium 137 mmol/L (137-145); Total Bilirubin 1.1 mg/dL (0.2-1.3); Total Protein 7.8 g/dL (6.3-8.2); Triglycerides 88 mg/dL (<150)
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
[2020-03-04 19:09] LABS: Hemoglobin A1C 5.6 % (4.0-6.0)
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
[2020-03-05] MEDS: DULoxetine HCL 60 MG CAPSULE.DR PO SCH (08:54)
[2020-03-05] MEDS: NICOTINE 14MG/24HR PATCH TRANSDERM SCH (08:54)
[2020-03-05] MEDS: ZIPRASIDONE 20 MG CAP PO SCH ×2 (08:54→20:43)
[2020-03-05] MEDS: LORazepam 1 MG TAB PO PRN ×2 (08:55→20:43)
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
[2020-03-05 16:26] VITALS: BMI 16.5
[2020-03-06] MEDS: ZIPRASIDONE 20 MG CAP PO SCH ×2 (08:16→20:11)
[2020-03-06] MEDS: DULoxetine HCL 60 MG CAPSULE.DR PO SCH (08:16)
[2020-03-06] MEDS: NICOTINE 14MG/24HR PATCH TRANSDERM SCH (08:16)
[2020-03-06] MEDS: LORazepam 1 MG TAB PO PRN ×2 (11:16→23:05)
[2020-03-06] MEDS ORDERED: DULoxetine HCL 30 MG CAPSULE.DR PO ONE (12:00)
--- NOTE | 2020-03-06 12:02 | P.PN ---
Progress Note - Text Progress Note Date: 03/06/20 Interval history: Patient was seen wandering the hallways after participating in group and was directable and agreeable to speak with automatic typewriter inspector. She claims that she is continuing to feel anxious and somewhat depressed during the day. She claims that she has several racing thoughts and night which prevent her from sleeping. She asked about having another medication except for Ativan to help her with anxiety and sleep. Patient was agreeable to start Seroquel when necessary. She claims that she is going to groups and participating in this she can. She claims a fair appetite. At this time patient denies any suicidal or homicidal ideations intent or plan. Denies any Auditory or visual hallucinations. Patient denies any side effects from the medications and has been compliant with meds. Mental status exam: General Appearance: Patient appears to be thin, stated age is alert, directable, and cooperative. Patient has red hair. Behavior: No agitated behavior. Patient is calm and directable appears anxious. Speech: Patient's speech is fluent and nonpressured. Mood/Affect: Mood is "depressed and anxious", affect is congruent and constricted. Suicidality/Homicidality: Patient denies having any suicidal or homicidal ideation intent or plan. Perceptions: Patient denies any auditory or visual hallucinations. Though content/process: There is no evidence of any delusional thought content and thought process is linear and goal-directed. Focused on her symptoms and discharged. Memory and concentration: AOX3, grossly intact for the purposes of this session Judgment and insight: improving mildly Assessment/Plan: Continue with current diagnosis. Patient continues to meet cr iteria for inpatient psychiatric admission for symptom stabilization and safety.Patient will be maintained on current psychotropic medication regimen, with the exception of increasing her Cymbalta to 90 mg daily for anxiety/mood. Patient will also be started on Seroquel 25 mg twice a day when necessary for anxiety. Monitor for medication compliance and for any psychotropic medication side effects. Will continue to monitor ongoing response to treatment. Encouraged participation in milieu.
[2020-03-06 17:40] LABS: Glucose,Whole Blood 97 mg/dL (75-99)
[2020-03-06] MEDS: QUEtiapine 25 MG TAB PO PRN (20:11)
[2020-03-07] MEDS: DULoxetine HCL 30 MG CAPSULE.DR PO SCH (08:44)
[2020-03-07] MEDS: NICOTINE 14MG/24HR PATCH TRANSDERM SCH (08:44)
[2020-03-07] MEDS: ZIPRASIDONE 20 MG CAP PO SCH ×2 (08:45→20:42)
--- NOTE | 2020-03-07 11:42 | P.PN ---
Progress Note - Text Progress Note Date: 03/07/20 Interval history: Patient was seen lying in her bed this morning and was directable and agreeable to speak with senior writer. She claims that she was feeling tired this morning and laid down for a nap. She states that her energy level is fair however and claims that her anxiety has been improving. She also states that her depression has been improving mildly. Patient claimed that she was able to sleep well last night and took the Seroquel before bedtime and found that it helped her. She claims that she is going to groups and participating in this she can. She claims a fair appetite. At this time patient denies any suicidal or homicidal ideations intent or plan. Denies any Auditory or visual hallucinations. Patient denies any side effects from the medications and has been compliant with meds. Mental status exam: General Appearance: Patient appears to be thin, stated age is alert, directable, and cooperative. Patient has red hair. Behavior: No agitated behavior. Patient is calm and directable, less anxious today. Speech: Patient's speech is fluent and nonpressured. Mood/Affect: Mood is "a bit better", affect is congruent and constricted. Suicidality/Homicidality: Patient denies having any suicidal or homicidal ideation intent or plan. Perceptions: Patient denies any auditory or visual hallucinations. Though content/process: There is no evidence of any delusional thought content and thought process is linear and goal-directed. Memory and concentration: AOX3, grossly intact for the purposes of this session Judgment and insight: improving mildly Assessment/Plan: Continue with current diagnosis. Patient continues to meet criteria for inpatient psychiatric admission for symptom stabilization and safety.Patient will be maintained on current psychotropic medication regimen. Monitor for medication compliance and for any psychotropic medication side effects. Will continue to monitor ongoing response to treatment. Encouraged participation in milieu.
[2020-03-07] MEDS: QUEtiapine 25 MG TAB PO PRN ×2 (16:30→22:02)
[2020-03-08 07:03] VITALS: BP 103/73; PULSE 96; RESP 18; TEMP 98.3
[2020-03-08] MEDS: NICOTINE 14MG/24HR PATCH TRANSDERM SCH (08:20)
[2020-03-08] MEDS: ZIPRASIDONE 20 MG CAP PO SCH (08:20)
[2020-03-08] MEDS: DULoxetine HCL 30 MG CAPSULE.DR PO SCH (08:20)
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
== END 2020-03-08 13:29 | disposition home or self-care (01) | DRG 885 ==
LOC: EC 20:48 → 3MHU 22:41
PROVIDERS: ADMIT Psychiatry & Neurology Psychiatry; ATTEND Psychiatry & Neurology Psychiatry
DX: F32.2 Major depressive disorder, single episode, severe without psychotic features (principal); E44.0 Moderate protein-calorie malnutrition; F60.3 Borderline personality disorder; F12.20 Cannabis dependence, uncomplicated; F41.9 Anxiety disorder, unspecified; F51.05 Insomnia due to other mental disorder; Z91.5 Personal history of self-harm; Z81.8 Family history of other mental and behavioral disorders; Z55.3 Underachievement in school; Z59.6 Low income; Z62.820 Parent-biological child conflict; Z59.1 Inadequate housing; Z87.891 Personal history of nicotine dependence; Z79.899 Other long term (current) drug therapy
CPT/HCPCS: 80053; 80061; 80306; 81001; 81025; 82075; 83036; 84443; 85025; 99285

== ENCOUNTER 2021-04-03 16:17 | Emergency (ER) | payer OTHER ==
[2021-04-03 16:35] VITALS: RESP 16
[2021-04-03] MEDS ORDERED: SODIUM CHLORIDE 0.9% 1,000 ML IV STA (16:39)
[2021-04-03] MEDS ORDERED: PANTOPRAZOLE 40 MG/10 ML VIAL IVP STA (16:39)
[2021-04-03] MEDS ORDERED: ONDANSETRON 4 MG/2 ML VIAL IVP STA (16:39)
[2021-04-03] MEDS ORDERED: KETOROLAC 15 MG/ML 1 ML VIAL IVP STA (16:44)
--- NOTE | 2021-04-03 16:49 | ED ---
Abdominal Pain HPI - General Chief Complaint: Abdominal Pain Stated Complaint: Abdominal/Side Pain Time Seen by Provider: 04/03/21 16:32 Source: patient Mode of arrival: ambulatory Limitations: no limitations - History of Present Illness Initial Comments: 20-year-old female presents to emergency department a chief complaint of abdominal pain. Patient reports the symptoms began several days ago with epigastric abdominal region and is now radiating to left lower quadrant region. She reports some nausea but denies any associated vomiting diarrhea or constipation. States the pain does not appear to be postprandial. Denies any urinary or vaginal symptoms. Does have history of ovarian cyst states the pain has been occasional issue likely secondary to the cyst. States the pain was gradual onset and not the worst headache of her life. - Related Data Previous Rx's Medication Instructions Recorded DULoxetine HCL [Cymbalta] 90 mg PO DAILY #90 capsule. 03/08/20 Nicotine 14Mg/24Hr Patch [Habitrol] 1 patch TRANSDERM DAILY #0 patch 03/08/20 QUEtiapine [SEROquel] 25 mg PO BID PRN #60 tab 03/08/20 Ziprasidone [Geodon] 20 mg PO BID #60 cap 03/08/20 Allergies Allergy/AdvReac Type Severity Reaction Status Date / Time No Known Allergies Allergy Verified 04/03/21 16:29 Review of Systems ROS Statement: Those systems with pertinent positive or pertinent negative responses have been documented in the HPI. ROS Other: All systems not noted in ROS Statement are negative. Past Medical History Past Medical History: Asthma Additional Past Medical History / Comment(s): previously suicidal 2 yrs ago with cutting self, exercise induced asthma,multiple personality disorder. History of Any Multi-Drug Resistant Organisms: None Reported Past Surgical History: No Surgical Hx Reported Past Psychological History: Anxiety, Bipolar, Depression Smoking Status: Vaper Past Alcohol Use History: Occasional Past Drug Use History: Marijuana General Exam Limitations: no limitations General appearance: alert, in no apparent distress Head exam: Present: atraumatic, normocephalic, normal inspection Eye exam: Present: normal appearance, PERRL, EOMI Pupils: Present: normal accommodation ENT exam: Present: normal exam, normal oropharynx, mucous membranes moist Neck exam: Present: normal inspection, full ROM. Absent: tenderness, lymphadenopathy Respiratory exam: Present: normal lung sounds bilaterally. Absent: respiratory distress Cardiovascular Exam: Present: regular rate, normal rhythm, normal heart sounds. Absent: diastolic murmur GI/Abdominal exam: Present: soft, tenderness (Left lower quadrant tenderness). Absent: distended, guarding, rebound, rigid Extremities exam: Present: normal inspection, full ROM, normal capillary refill. Absent: tenderness, pedal edema Back exam: Present: normal inspection, full ROM. Absent: tenderness, CVA tenderness (R), CVA tenderness (L), muscle spasm, paraspinal tenderness Neurological exam: Present: alert, oriented X3 Psychiatric exam: Present: normal affect, normal mood Skin exam: Present: warm, dry, intact, normal color Course Vital Signs 04/03/21 16:27 Temperature 97.9 F Pulse Rate 71 Respiratory 16 Rate Blood Pressure 114/77 O2 Sat by Pulse 96 Oximetry Medical Decision Making - Medical Decision Making 20-year-old female presents to emergency department a chief complaint of abdominal pain. On physical examination, mild left lower quadrant tenderness. Laboratory work is unremarkable. She is not . Patient was given IV fluids, analgesics. On reevaluation, she reports improving his symptoms. Likely her symptoms are related to her reproductive system. Advised to follow- up with an OB. We'll give her contact information. Return parameters were thoroughly discussed patient was understanding agreeable. Case discussed with physician. - Lab Data Result diagrams: 04/03/21 16:59 04/03/21 16:59 Lab Results 04/03/21 04/03/21 04/03/21 Range/Units 16:59 16:59 16:59 WBC 5.6 (4.0-11.0) k/uL RBC 4.64 (3.80-5.40) m/uL Hgb 13.3 (11.4-16.0) gm/dL Hct 39.1 (34.0-46.0) % MCV 84.2 (80.0-100.0) fL MCH 28.7 (25.0-35.0) pg MCHC 34.1 (31.0-37.0) g/dL RDW 13.1 (11.5-15.5) % Plt Count 224 (150-450) k/uL MPV 8.0 Neutrophils % 59 % Lymphocytes % 29 % Monocytes % 8 % Eosinophils % 1 % Basophils % 1 % Neutrophils # 3.3 (1.3-7.7) k/uL Lymphocytes # 1.6 (1.0-4.8) k/uL Monocytes # 0.5 (0-1.0) k/uL Eosinophils # 0.1 (0-0.7) k/uL Basophils # 0.0 (0-0.2) k/uL Sodium (137-145) mmol/L Potassium (3.5-5.1) mmol/L Chloride (98-107) mmol/L Carbon Dioxide (22-30) mmol/L Anion Gap mmol/L BUN (7-17) mg/dL Creatinine (0.52-1.04) mg/dL Est GFR (CKD-EPI)AfAm (>60 ml/min/1.73 sqM) Est GFR (CKD-EPI)NonAf (>60 ml/min/1.73 sqM) Glucose (74-99) mg/dL Calcium (8.4-10.2) mg/dL Total Bilirubin (0.2-1.3) mg/dL AST (14-36) U/L ALT (4-34) U/L Alkaline Phosphatase (38-126) U/L Total Protein (6.3-8.2) g/dL Albumin (3.5-5.0) g/dL Amylase (30-110) U/L Lipase (23-300) U/L Urine Color Light Yellow Urine Appearance Cloudy H (Clear) Urine pH 6.5 (5.0-8.0) Ur Specific [place] 1.004 (1.001-1.035) Urine Protein Negative (Negative) Urine Glucose (UA) Negative (Negative) Urine Ketones Negative (Negative) Urine Blood Negative (Negative) Urine Nitrite Negative (Negative) Urine Bilirubin Negative (Negative) Urine Urobilinogen <2.0 (<2.0) mg/dL Ur Leukocyte Esterase Negative (Negative) Urine WBC <1 (0-5) /hpf Ur Squamous Epith Cells 1 (0-4) /hpf Urine Bacteria Occasional H (None) /hpf Urine HCG, Qual Not Detected (Not Detectd) 04/03/21 Range/Units 16:59 WBC (4.0-11.0) k/uL RBC (3.80-5.40) m/uL Hgb (11.4-16.0) gm/dL Hct (34.0-46.0) % MCV (80.0-100.0) fL MCH (25.0-35.0) pg MCHC (31.0-37.0) g/dL RDW (11.5-15.5) % Plt Count (150-450) k/uL MPV Neutrophils % % Lymphocytes % % Monocytes % % Eosinophils % % Basophils % % Neutrophils # (1.3-7.7) k/uL Lymphocytes # (1.0-4.8) k/uL Monocytes # (0-1.0) k/uL Eosinophils # (0-0.7) k/uL Basophils # (0-0.2) k/uL Sodium 134 L (137-145) mmol/L Potassium 4.3 (3.5-5.1) mmol/L Chloride 105 (98-107) mmol/L Carbon Dioxide 20 L (22-30) mmol/L Anion Gap 9 mmol/L BUN 8 (7-17) mg/dL Creatinine 0.55 (0.52-1.04) mg/dL Est GFR (CKD-EPI)AfAm >90 (>60 ml/min/1.73 sqM) Est GFR (CKD-EPI)NonAf >90 (>60 ml/min/1.73 sqM) Glucose 94 (74-99) mg/dL Calcium 9.3 (8.4-10.2) mg/dL Total Bilirubin 0.6 (0.2-1.3) mg/dL AST 25 (14-36) U/L ALT 12 (4-34) U/L Alkaline Phosphatase 68 (38-126) U/L Total Protein 6.6 (6.3-8.2) g/dL Albumin 4.2 (3.5-5.0) g/dL Amylase 60 (30-110) U/L Lipase 74 (23-300) U/L Urine Color Urine Appearance (Clear) Urine pH (5.0-8.0) Ur Specific [place] (1.001-1.035) Urine Protein (Negative) Urine Glucose (UA) (Negative) Urine Ketones (Negative) Urine Blood (Negative) Urine Nitrite (Negative) Urine Bilirubin (Negative) Urine Urobilinogen (<2.0) mg/dL Ur Leukocyte Esterase (Negative) Urine WBC (0-5) /hpf Ur Squamous Epith Cells (0-4) /hpf Urine Bacteria (None) /hpf Urine HCG, Qual (Not Detectd) Disposition Clinical Impression: Abdominal pain Disposition: HOME SELF-CARE Condition: Stable Instructions (If sedation given, give patient instructions): Abdominal Pain (ED) Additional Instructions: Please return to the Emergency Department if symptoms worsen or any other concerns. Is patient prescribed a controlled substance at d/c from ED?: No Referrals: Cuba Beyer DO [Primary Care Provider] - 1-2 days Birdie Obregon MD [STAFF PHYSICIAN] - 1-2 days Gautam Regalaod DO [Doctor of Osteopathic Medicine] - 1-2 days Time of Disposition: 17:48
[2021-04-03 17:11] LABS: Basophils % (A) 1 %; Eosinophils # (A) 0.1 k/uL (0-0.7); Eosinophils % (A) 1 %; HCT 39.1 % (34.0-46.0); HGB 13.3 gm/dL (11.4-16.0); Lymphocytes # (A) 1.6 k/uL (1.0-4.8); Lymphocytes % (A) 29 %; MCH 28.7 pg (25.0-35.0); MCHC 34.1 g/dL (31.0-37.0); MCV 84.2 fL (80.0-100.0); Monocytes # (A) 0.5 k/uL (0-1.0); Monocytes % (A) 8 %; Neutrophils # (A) 3.3 k/uL (1.3-7.7); Neutrophils % (A) 59 %; Platelet Count 224 k/uL (150-450); RBC 4.64 m/uL (3.80-5.40); RDW 13.1 % (11.5-15.5); WBC 5.6 k/uL (4.0-11.0)
[2021-04-03 17:14] LABS: Appearance,Urine Cloudy (Clear); Bacteria,Urine Occasional /hpf; Bilirubin,Urine Negative (Negative); Blood,Urine Negative (Negative); Color,Urine Light Yellow; Glucose,Urine (UA) Negative (Negative); Ketones,Urine Negative (Negative); Leukocyte Esterase,Urine Negative (Negative); Nitrite,Urine Negative (Negative); PH, Urine 6.5 (5.0-8.0); Protein,Urine Negative (Negative); Specific Gravity,Urine 1.004 (1.001-1.035); Squamous Epithelial Cell,Urine 1 /hpf (0-4); Urobilinogen,Urine <2.0 mg/dL (<2.0); WBC,Urine <1 /hpf (0-5)
[2021-04-03 17:27] LABS: ALT 12 U/L (4-34); AST 25 U/L (14-36); African American GFR (CKD) >90 (>60 ml/min/1.73 sqM); Albumin 4.2 g/dL (3.5-5.0); Alkaline Phosphatase 68 U/L (38-126); Amylase 60 U/L (30-110); Anion Gap 9 mmol/L; Blood Urea Nitrogen 8 mg/dL (7-17); Calcium 9.3 mg/dL (8.4-10.2); Carbon Dioxide 20 mmol/L (22-30); Chloride 105 mmol/L (98-107); Glucose 94 mg/dL (74-99); Lipase 74 U/L (23-300); Non-African American GFR(CKD) >90 (>60 ml/min/1.73 sqM); Potassium 4.3 mmol/L (3.5-5.1); Sodium 134 mmol/L (137-145); Total Bilirubin 0.6 mg/dL (0.2-1.3); Total Protein 6.6 g/dL (6.3-8.2)
[2021-04-03 18:14] VITALS: BP 111/62; PULSE 72; TEMP 97.7
== END 2021-04-03 18:10 | disposition home or self-care (01) ==
LOC: EC 16:17
DX: R10.32 Left lower quadrant pain (principal); J45.909 Unspecified asthma, uncomplicated; F31.9 Bipolar disorder, unspecified; F41.9 Anxiety disorder, unspecified; F17.290 Nicotine dependence, other tobacco product, uncomplicated; F12.90 Cannabis use, unspecified, uncomplicated
CPT/HCPCS: 36415; 80053; 82150; 83690; 85025; 81001; 81025; 96374; 96375 ×2; 96361; 99284; J2405; J1885; C9113

== ENCOUNTER → 2021-06-30 | Outpatient (CLI) | payer OTHER ==
[2021-06-30 23:05] LABS: Basophils # (A) 0.05 X 10*3/uL (0.00-0.10); Basophils % (A) 0.7 %; Eosinophils # (A) 0.03 X 10*3/uL (0.04-0.35); Eosinophils % (A) 0.4 %; HCT 38.5 % (37.2-46.3); HGB 12.6 g/dL (12.0-15.0); Lymphocytes # (A) 1.92 X 10*3/uL (0.90-5.00); Lymphocytes % (A) 25.5 %; MCH 26.6 pg (27.0-32.0); MCHC 32.7 g/dL (32.0-37.0); MCV 81.4 fL (80.0-97.0); Monocytes # (A) 0.76 X 10*3/uL (0.20-1.00); Monocytes % (A) 10.1 %; Neutrophils # (A) 4.74 X 10*3/uL (1.80-7.70); Platelet Count 251 X 10*3/uL (140-440); RBC 4.73 X 10*6/uL (4.10-5.20); RDW 13.6 % (11.5-14.5); WBC 7.52 X 10*3/uL (4.50-10.00)
[2021-07-01 01:47] LABS: Erythrocyte Sedimentation Rate 6 mm/Hr (0-20)
[2021-07-01 11:35] LABS: ALT 11 U/L (8-44); AST 18 U/L (13-35); Albumin 4.7 g/dL (3.8-4.9); Albumin/Globulin Ratio 2.09 (1.60-3.17); Alkaline Phosphatase 66 U/L (41-126); BUN/Creat Ratio 14.57 Ratio (12.00-20.00); Blood Urea Nitrogen 10.1 mg/dL (9.0-27.0); Calcium 9.4 mg/dL (8.7-10.3); Chloride 103 mmol/L (96-109); Creatine Kinase 76 U/L (26-186); Globulin 2.2 g/dL (1.6-3.3); Glucose 84 mg/dL (70-110); Non-African American GFR(CKD) 125.1 (60.0-200.0); Potassium 4.1 mmol/L (3.5-5.5); Sodium 137 mmol/L (135-145); Total Protein 6.9 g/dL (6.2-8.2)
[2021-07-01 11:53] LABS: C Reactive Protein <0.30 mg/dL (0.00-0.80); Rheumatoid Factor, Qnt <10 IU/mL (0-15)
== END | disposition home or self-care (01) ==
LOC: LABWHC1 15:58
PROVIDERS: ATTEND Family Medicine
DX: M25.50 Pain in unspecified joint (principal); R53.82 Chronic fatigue, unspecified
CPT/HCPCS: 36415; 80053; 82306; 82550; 82607; 84439; 84443; 85025; 85652; 86038; 86140; 86431